=== PATIENT | female | born 1930 | race Caucasian/White ===

== ENCOUNTER 2017-05-25 13:22 | Observation (INO) | payer MEDICARE, BC ==
[~2017-05-25] VITALS: Ht 162.6 cm; Wt 61.1 kg
--- NOTE | ~2017-05-25 | ECH ---
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 The estimated left ventricular ejection fraction is 65%. Diastolic assessment reveals Grade I diastolic dysfunction. Mild concentric left ventricular hypertrophy. Normal right ventricle structure and function. Mild mitral regurgitation by color Doppler. There is trivial aortic regurgitation by color Doppler. Mild tricuspid regurgitation by color Doppler. Estimated pulmonary pressures within normal range. Procedure Type of Study TTE procedure:Echo Complete SF. Procedure Date Date: 05/26/2017 Start: 10:10 AM Technical Quality: Adequate visualization Indications:Atypical Chest Pain, Palpitations, Hypertension and RBBB. Additional Indications:frequent PVCs Appropriate Use Criteria: 9 Height: 64 inches Weight: 134 pounds BSA: 1.65 m Rhythm: Sinus with bundle branch block HR: 60 bpm BP: 156/77 mmHg M-Mode/2D Measurements LV Diastolic Dimension: 4.14 cm LV Systolic Dimension: 2.76 cm LV Septum Diastolic: 0.9 cm LV PW Diastolic: 0.91 cm AO Root Dimension: 2.54 cm Cardiac Output: 3.7 l/min LA Dimension: 2.69 cm Cardiac Index: 2.24 l/min*m RV Diastolic Dimension: 3.62 cm LA volume index: 23 ml/m LVOT: 2.07 cm LVOT VTI: 18.31 cm RV Base: 3.45 cm LV Stroke volume: 61.59 ml RV Mid: 2.39 cm LV Stroke volume index: 37.33 ml/m RV Length: 5.55 cm TAPSE: 1.49 cm TDI-S': 10 cm/s Doppler Measurements AV Peak Velocity: 1.06 m/s MV Peak E-Wave: 0.5 m/s AV Peak Gradient: 4.49 mmHg MV Peak A-Wave: 0.64 m/s AV Mean Gradient: 2.33 mmHg MV E/A Ratio: 0.79 LVOT Peak Velocity: 0.79 m/s MV P1/2t: 98.5 msec AV Area (Continuity):2.44 cm MV Deceleration Time: 314.9 msec TR Velocity:2.64 m/s MV Area (PHT): 2.23 cm TR Gradient:27.88 mmHg PV Peak Velocity: 1.36 m/s Estimated RAP:5 mmHg PV Peak Gradient: 7.36 mmHg Estimated RVSP: 33 mmHg Estimated PASP: 32.88 mmHg RA Area: 11.95 cm Findings Left Ventricle The left ventricle is normal in size . Diastolic assessment reveals Grade I diastolic dysfunction. Mild concentric left ventricular hypertrophy. Right Ventricle Normal right ventricle structure and function. Left Atrium Normal left atrial size. Right Atrium Normal right atrial size. There is a prominent Eustachian valve seen in the right atrium. Mitral Valve Normal mitral valve structure and function. Mild mitral regurgitation by color Doppler. Aortic Valve The aortic valve is mildly sclerotic. There is trivial aortic regurgitation by color Doppler. Tricuspid Valve Normal appearing tricuspid valve. Mild tricuspid regurgitation by color Doppler. Estimated pulmonary pressures within normal range. Pulmonic Valve Normal pulmonic valve structure and function. Trivial pulmonic valve regurgitation by color Doppler. Pericardial Effusion No evidence of pericardial effusion. Miscellaneous Visualized portions of the aortic root and ascending aorta appear normal in size. Pleural Effusion No evidence of pleural effusion. Contractility Score LV regional wall motion:(0-Non visualized 1-Normal 2-Hypokinesis 3-Akinesis 4-Dyskinesis 5-Aneurysm) Signature
--- NOTE | ~2017-05-25 | ER ---
ADMIT: 05/25/2017 RM/LOC: 411 [facility] MR#: [id number] [address] [address] [place] [address] Emergency Room Report SEX: F AGE: 87 : 1930 DATE: 05/25/2017 ADDENDUM: An 87-year-old white female coming with chest pain and a little shakiness. She has had this before several years ago, seemed to be ruled out. She has been doing okay up until recently. At this time, CBC, chemistry, troponin, EKG, and chest x-ray, nothing acute. However, owing to her advanced age, we are going to admit her and rule her out. I did speak with Dr. Vasquez who is covering for Dr. Bermudez. CONDITION ON DISCHARGE: Good. Ruperto Fernandez MD/ crystal JOB #: [id number] CC: Mac Bermudez MD, Attending Physician Mac Bermudez MD, Family Physician
--- NOTE | 2017-05-27 17:32 | HP ---
ADMIT: 05/25/2017 RM/LOC: 411 [facility] MR#: [id number] [address] [address] [place] [address] History and Physical SEX: F AGE: 87 : 1930 DATE OF SERVICE: CHIEF COMPLAINT: Arelis Jiang's niece called our office this morning. Arelis has been experiencing some ill-defined lower chest pressure/heaviness in association with palpitations, rapid heart rate over the last few days. She got worse this morning. She woke up with it, so she did call her niece who architecture intern called our office, and we advised that she go to the emergency room rather than to our office to be triaged in case she was having a myocardial infarction. She has had not had nausea, vomiting, or shortness of breath or diaphoresis with any of this; can come on at rest or with activity. She is not experiencing any reflux symptoms with that. In the emergency room, she is found to be hypertensive and her chest discomfort was treated with nitroglycerin x2 with improvement in her symptoms. She had an EKG showing some nonspecific changes, and some PVCs, and a right bundle-branch block. Her cardiac enzymes were negative. Her chest x-ray was negative. Dr. Fernandez contacted me and we felt she should be OPO to monitor for any acute coronary event. Interestingly, Arelis's symptoms started to come on around the time she had a change in her medication atenolol to Lopressor. There is nationwide shortage of atenolol that is the reason for the change. She was changed from atenolol 25 mg daily to metoprolol succinate 25 mg daily. This is affectively lower dose. PAST MEDICAL HISTORY: OPERATIONS: 1. Cholecystectomy. 2. Bilateral hip replacements. CHRONIC ILLNESSES: 1. Hypertension. 2. Osteoporosis. 3. Macular degeneration of the eyes. FAMILY HISTORY: Positive for coronary artery disease, diabetes, breast cancer, glaucoma in first-degree relatives. HOSPITALIZATIONS: She was hospitalized in 2010, also with some chest discomfort. Workup negative at that time. It was felt to be noncardiac pain, potentially GERD at that time. She has really not had any significant day-to- day troubles with GERD. SOCIAL HISTORY: She does not smoke or use alcohol. She lives alone. She is , manages all her own cares. ALLERGIES: NONE. MEDICATIONS: 1. Metoprolol succinate 25 mg daily. 2. Calcium with vitamin D. ADMIT: 05/25/2017 RM/LOC: 411 [facility] MR#: [id number] [facility] [address] [address] AREL[place] JIANG [address] [place] [address] History and Physical SEX: F AGE: 87 : 1930 3. PreserVision two capsules daily. 4. She takes Avastin injections periodically for her macular degeneration. REVIEW OF SYSTEMS: CONSTITUTIONAL: No fever. No chills. ENT: No acute changes. Hearing is good. EYES: Macular degeneration. CARDIOVASCULAR: As above. RESPIRATORY: No cough or shortness of breath. GI: No nausea, vomiting, or stool changes. : No acute urinary complaints. BONE AND JOINT: She has some arthritic symptoms. NEURO: No focal symptoms. PSYCH: No mental illness. HEMATOLOGIC: No documented history of bleeding or blood clots. PHYSICAL EXAMINATION: GENERAL: A pleasant 87-year-old female, appears younger than her stated age. She appears completely comfortable, in no acute distress. Certainly, does not appear to be in any pain. Her monitor shows sinus rhythm with PVCs, rate currently 80s to 90s. VITAL SIGNS: Her blood pressure in the emergency room was over 200 systolic. Her blood pressure on the floor is 161/62, respirations 16, pulse 69, temperature 96.8, O2 saturation 98%. ENT: Hearing is unremarkable. No nasal discharge. Oral mucous membranes are moist. No oral lesions are appreciated. EYES: Pupils are equal and reactive. She wears glasses. NECK: No masses or tenderness. No thyromegaly (TSH level was normal). No bruits. HEART: Regular rhythm at this time. Occasional premature contraction. I do not hear a murmur, rub, or gallop. BREASTS: Not examined. LUNGS: Clear anterior and posterior. Normal respiratory effort. No respiratory distress. ABDOMEN: Soft and nontender to palpation of upper and lower abdomen. No masses appreciated. No inguinal hernias. GENITOURINARY: Not examined. EXTREMITIES: Upper extremities, no gross abnormalities. Lower extremities, no edema in her lower extremities. Good pulses in her feet. NEURO: Grossly intact. PSYCH: She is alert, calm. ADMIT: 05/25/2017 RM/LOC: 411 [facility] MR#: [id number] [address] [place] [id number] ARELIS JIANG [address] [place] [address] History and Physical SEX: F AGE: 87 : 1930 IMPRESSION: 1. Chest pain, likely noncardiac. 2. Palpitations. 3. Hypertension. DISCUSSION: She will be monitored overnight to rule out for acute coronary syndrome. I am going to increase her Lopressor to a dose equivalent to her prior atenolol dose, see if that helps with her blood pressure and her palpitations. We will adjust treatment as necessary and involve Cardiology if necessary. Larry Vasquez MD/ crystal JOB #: [id number] CC: Mac Bermudez, Attending Physician Mac Bermudez, Family Physician
[2017-05-27] MEDS ORDERED: TOPROL XL DPS50 MG PO (19:34)
[2017-05-27] MEDS ORDERED: PRESERVISION A1 EACH PO (19:35)
[2017-05-27] MEDS ORDERED: CALTRATE-600 W600 MG PO (19:35)
[2017-05-27] MEDS ORDERED: TEARS NATURAL D15 ML OU (19:35)
[2017-05-27] MEDS ORDERED: TYLENOL DPS325 MG PO (19:35)
== END 2017-05-26 16:09 | disposition home or self-care (01) ==
LOC: ER 13:22 → 4PCU 16:00
PROVIDERS: ADMIT Family Medicine
DX: R07.9 Chest pain, unspecified (principal); R00.2 Palpitations; I10 Essential (primary) hypertension; M18.0 Bilateral primary osteoarthritis of first carpometacarpal joints; H35.30 Unspecified macular degeneration; Z79.899 Other long term (current) drug therapy; Z90.49 Acquired absence of other specified parts of digestive tract; Z96.643 Presence of artificial hip joint, bilateral